=== PATIENT | male | born 1995 | race Caucasian/White ===

== ENCOUNTER 2023-02-06 10:44 | Emergency (ER) | payer OTHER, SELFPAY ==
--- NOTE | 2023-02-06 12:21 | ED_ITS ---
HPI - General Adult General Chief complaint: Eye Problems Stated complaint: swollen eye Time Seen by Provider: 02/06/23 12:27 Source: patient Mode of arrival: ambulatory Limitations: no limitations History of Present Illness HPI narrative: Patient is a 28 year old assigned male at with no reported medical history presenting to the emergency department today with left eye irritation. Patient states that starting this last night and into this morning he began to have left eye irritation, pain, and woke up with some mild discharge from his left eye. 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 Patient denies any dizziness, lightheadedness, abdominal pain, nausea, vomiting, fever, chills, blurry vision, double vision, loss of vision, chest pain, difficulty breathing, shortness of breath, back pain, night sweats, pain with urination, increased urinary frequency, increased urinary urgency, blood in his urine or stool, syncope or a near syncopal episode, recent trauma or falls, bowel incontinence, bladder incontinence, bowel retention, bladder retention, or any other complaints at this time. Onset (ago): hour(s) Location: left (eye) Radiation: non-radiation Severity: mild Severity scale (1-10): 3 Quality: aching Pain Consistency: constant Relieving factors: none Exacerbating factors: none Associated symptoms: denies other symptoms Treatments prior to arrival: none Related Data Previous Rx's Medication Instructions Recorded erythromycin 5 mg/gram (0.5 %) eye 0.5 inch ophthalmic (eye) Q4H #3.5 02/06/23 ointment grams prednisolone acetate 1 % eye 1 drp ophthalmic (eye) TID #5 mL 02/06/23 drops,suspension Allergies Allergy/AdvReac Type Severity Reaction Status Date / Time No Known Allergies Allergy Verified 02/06/23 12:22 Review of Systems Constitutional: Constitutional: Reports no additional constitutional complaints, Denies chills, Denies fever(s) and Denies night sweats Eyes: Eyes: Reports no additional eye complaints, Denies blurry vision, Denies change in vision, Denies diplopia, Denies eye discharge, Reports irritation, Denies loss of vision and Reports eye pain ENT: Denies dizziness Cardiovascular: Cardiovascular: Reports no additional cardiovascular complaints, Denies chest pain, Denies lightheadedness, Denies Loss of Consciousness and Denies dyspnea Respiratory: Respiratory: Reports no additional respiratory complaints and Denies dyspnea Gastrointestinal: Gastrointestinal: Reports no additional gastrointestinal complaints, Denies abdominal pain, Denies melena, Denies hematochezia, Denies change in bowel habits and Denies change in stool character Genitourinary: Genitourinary: Reports no additional male genitourinary complaints, Denies hematuria, Denies oliguria, Denies difficulty urinating, Denies dysuria, Denies urinary frequency, Denies urinary hesitancy, Denies urinary incontinence and Denies urinary urgency Musculoskeletal: Musculoskeletal: Reports no additional musculoskeletal complaints, Denies numbness and Denies tingling Neurologic: Denies dizziness, Denies loss of vision, Denies numbness and Denies tingling Psychiatric: Psychiatric: Reports no additional psychiatric complaints Endocrine: Endocrine: Reports no additional endocrine complaints Hematologic/Lymphatic: Hematologic/Lymphatic: Reports no additional hematologic/lymphatic complaints Allergic/Immunologic: Allergic/Immunologic: Reports no additional allergic/immunologic complaints [facility] Past Medical History Attestation statement: The following information was validated with the patient. Source: old records reviewed and nursing notes reviewed Social History Social History Advance Directives: No Physical Exam ED Vital Signs: Vital Signs - 24 hr 02/06/23 12:23 Temperature 97.5 F Pulse Rate 78 Respiratory Rate 18 Blood Pressure 143/82 H Pulse Oximetry 99 Oxygen Delivery Method Room Air BMI result Body Mass Index 27.5 Const General: cooperative, no acute distress, alert and awake Nutritional Appearance: well nourished Orientation/consciousness: patient oriented x3 Limitations: no limitations [facility] Head: Yes normal to inspection and Yes atraumatic Ears: hearing grossly normal bilaterally and external ears normal General nose exam: Normal external nose present, no nasal discharge noted and no epistaxis Face and sinus: Yes normal facial exam, No abrasion and No laceration Mouth: Normal oral and palatal mucosa present, no drooling and no muffled voice Eyes Periorbital: periorbital findings normal Eyelids: Yes eyelids normal Conjunctivae: conjunctival abnormal left conjunctival injection diffuse Pupils: Equal, round and reactive pupils present EOM: EOMs intact bilaterally Neck Neck: Yes normal visual inspection, Yes full ROM and Yes no lymphadenopathy Chest Chest palpation & inspection: normal inspection of the chest Resp Effort & Inspection: normal respiratory effort and able to speak in complete sentences GI Inspection: Yes normal to inspection Neuro General: patient oriented x3 and moves all extremities Cranial nerves: Yes Equal, round and reactive pupils present Cognition (Neuro): normal cognition Motor exam (neuro): 5/5 motor strength present throughout Sensory Exam: Normal double simultaneous stimulation for sensation Coordination: [id number] test normal Extrem General: Yes normal to inspection, Yes full ROM and Yes capillary refill normal Psych Appearance: grossly normal Mental Status: mental status grossly normal Affect: normal affect Attitude: cooperative Thought process: Normal thought process present Thought content: Normal thought content present Insight: Good insight present (Psych) Course Course Course Narrative: RME performed by Analy Hinojosa PA-C. Patient is a 28 year old assigned male at presenting to the emergency department with left eye pain and swelling. Medical Decision Making Medical Decision Making MDM Narrative: Patient is a 28 year old assigned male at with no reported medical history presenting to the emergency department today with left eye irritation and pain. Patient's physical exam showed an obviously irritated left eye with minimal discharge present in the tear duct of the left eye. I explained my physical exam findings to the patient. I answered all questions asked by the patient. I stressed the importance of the patient taking his medication as prescribed. I stressed the importance of the patient following up with his primary care provider and an process laboratory specialist. I stressed the importance of the patient returning to the emergency department immediately if his symptoms were to worsen or if he were to develop any dizziness, shortness of breath, difficulty breathing, chest pain, blurry vision, loss of vision, nausea, vomiting, abdominal pain, fever, chills, back pain, or any other complaints. Patient verbalized agreement and understanding with this treatment plan and discharge. Differential Diagnosis Differential Diagnoses: The differential diagnosis associated with the presentation includes Uveitis Iritis Corneal abrasion Conjunctivitis Prescription Management I considered prescription management with: Antibiotic (patient prescribed antibiotic ointment) and Other (patient prescribed steroid eye drops) Discharge Plan Discharge Clinical Impression: Uveitis, Conjunctivitis Patient Disposition: Home, Self-Care Instructions: Iritis (ED), Conjunctivitis (ED) Additional Instructions: Follow up with your primary care provider and an process laboratory specialist. Return to the emergency department immediately if your symptoms worsen or if you develop any dizziness, shortness of breath, difficulty breathing, chest pain, blurry vision, loss of vision, nausea, vomiting, abdominal pain, fever, chills, back pain, or any other complaints. Prescriptions: New erythromycin 5 mg/gram (0.5 %) ointment 0.5 inch ophthalmic (eye) Q4H Qty: 3.5 0RF prednisolone acetate 1 % drops,suspension 1 drp ophthalmic (eye) TID Qty: 5 0RF Referrals: [facility] Family [facility] [Provider Group] (Call to establish and follow up with a primary care provider. If you already have a primary care provider, please follow up with them.) [facility] Primary Care, [place] [Provider Group] (Call to establish and follow up with a primary care provider. If you already have a primary care provider, keysha se follow up with them.) [facility] Primary [facility] [Provider Group] (Call to establish and follow up with a primary care provider. If you already have a primary care provider, please follow up with them.) Garry Pineda [Physician] - (Call to establish and follow up with an process laboratory specialist.) Stand Alone Forms: Work/School Release Interventions: ED Discharge Assessment Last Done: 02/06/23 12:32 Discharge Date/Time: 02/06/23 12:32 Print Language: Brazilian
[2023-02-06 12:23] VITALS: BP 143/82; PULSE 78; RESP 18; TEMP 36.4; O2SAT 99; BMI 27.5
== END 2023-02-06 12:32 | disposition home or self-care (01) ==
PROVIDERS: Emergency Provider Emergency Medicine
DX: H20.9 Unspecified iridocyclitis (principal); H10.9 Unspecified conjunctivitis; H57.12 Ocular pain, left eye
CPT/HCPCS: 99282; 99283

== ENCOUNTER 2023-06-20 13:14 | Outpatient (AMB) | payer OTHER, SELFPAY ==
--- NOTE | 2023-06-20 14:07 | AM.OFFWIN_ITS ---
Intake Vital Signs 06/20/23 14:08 Height 5 ft 8.9 in Weight 164 lb BMI 24.3 BP 112/60 Blood Pressure Location Lt brachial Position Sitting Pulse 81 Pulse Source Pulse Oximeter Temp 98.2 F Temp Source Oral Pulse Oximetry (%) 98 Oxygen Delivery Method Room Air Intake Visit Reasons: EP, left ear blockage Intake Note: Pt is here today c/o Lt ear blockage Patient Tobacco Use Status: Never used Tobacco Allergies No Known Allergies Allergy (Verified 06/20/23 14:09) Do you need a note to return to daycare/school/sports/work: No HPI EP, left ear blockage HPI Details Patient is a 28-year-old male comes to the walk-in clinic complaining of left ear pain for the last few days. He states that few days prior to that he had cold symptoms, which he did not test for COVID at the time. He states that runny nose and cough have resolved, however he is having diminished hearing in the left ear as well as discomfort. 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 No reported fever chills, nausea vomiting or diarrhea, headache or dizziness, discharge from the ear, respiratory symptoms, sore throat, cough, weakness or myalgias, or other significant associated symptoms. [facility] Social History Patient Tobacco Use Status: Never used Tobacco Review of Systems Const All systems reviewed & are unremarkable except as noted in HPI and below Physical Exam Vital Signs: Last Vital Signs Temp 98.2 F 06/20/23 14:08 Pulse 81 06/20/23 14:08 BP 112/60 06/20/23 14:08 Pulse Ox 98 06/20/23 14:08 Oxygen Delivery Method Room Air 06/20/23 14:08 BMI result Body Mass Index 24.3 Const General: cooperative, healthy appearing, comfortable, no acute distress, alert, awake, Physically active and well groomed; No anxious, diaphoretic, ill appearing, intoxicated appearing, poor hygiene or tired appearing Nutritional Appearance: average body habitus Limitations: no limitations HEENT Head: Yes normal to inspection, Yes normocephalic and Yes atraumatic Ears: hearing grossly normal bilaterally, external ears normal, EAC's normal and TM abnormal (Injected) bulging, erythematous and obstructed by cerumen (Per the MA, and he was Irrigated by the MA prior to my evaluation); not perforated General nose exam: Normal external nose present, Normal nares present, No nasal polyps present, Normal nasal mucous membranes and turbinates present, Normal septum present and No nasal discharge present Face and sinus: Yes normal facial exam, Yes sinuses nontender and Yes face symmetric Neck Neck: Yes normal visual inspection, Yes no lymphadenopathy, Yes trachea midline, Yes supple and No anterior neck swelling Resp Effort & Inspection: normal respiratory effort Skin Other: Good color, warm and dry Psych Appearance: grossly normal Mental Status: mental status grossly normal Speech and movement: Normal speech and movement present Affect: normal affect Attitude: cooperative Thought process: Normal thought process present Insight: Good insight present (Psych) Judgement: Good judgement present (Psych) Assessment & Plan Assessment & Plan (1) Otitis media: Code(s): H66.90 - Otitis media, unspecified, unspecified ear Qualifiers: Chronicity: acute Laterality: left Recurrence: non-recurrent Spontaneous tympanic membrane rupture: without spontaneous rupture Otitis media type: suppurative Qualified Code(s): H66.002 - Acute suppurative otitis media without spontaneous rupture of ear drum, left ear Plan Patient with left otitis media, few days after upper respiratory infection symptoms. Does have a history recurrent ear infections, however he has not had 1 recently. He did not test for COVID, so PCR testing for COVID flu and RSV is pending. I wrote him for a course of Augmentin, and he can follow up if symptoms persist or worsen. Orders: Orders SARS-CoV2/FLU/RSV 06/20/23 R05.9 - Cough, unspecified Medications: New amoxicillin-pot clavulanate 875-125 mg 1 tab PO BID 14 tabs 0RF Coding Level of Care Code Est Pt Level 4 (94787) Diagnoses Non-recurrent acute suppurative otitis media of left ear without spontaneous rupture of tympanic membrane H66.002 Chronicity: acute Laterality: left Recurrence: non-recurrent Spontaneous tympanic membrane rupture: without spontaneous rupture Otitis media type: suppurative
[2023-06-20 14:08] VITALS: BP 112/60; PULSE 81; TEMP 36.8; O2SAT 98; BMI 24.3
== END 2023-06-20 14:28 | disposition home or self-care (01) ==
PROVIDERS: Visit Provider Physician Assistant Medical
DX: H66.002 Acute suppurative otitis media without spontaneous rupture of ear drum, left ear (principal)
CPT/HCPCS: 99051; 99214

== ENCOUNTER 2023-06-20 15:55 | Outpatient (REF) | payer OTHER, SELFPAY ==
[2023-06-20 16:39] LABS: Influenza A PCR NEGATIVE (Negative); Influenza B PCR NEGATIVE (Negative); Resp Syncy Virus RNA Qual PCR NEGATIVE (Negative); SARS COV2 PCR INHOUSE POSITIVE (Negative)
== END 2023-06-20 15:56 | disposition home or self-care (01) ==
LOC: HO.HMGCLNP 15:55
PROVIDERS: Visit Provider Physician Assistant Medical
DX: Z11.52 Encounter for screening for COVID-19 (principal); R05.9 Cough, unspecified
CPT/HCPCS: 0241U